=== PATIENT | male | born 1980 | race Caucasian/White ===

== ENCOUNTER 2018-07-10 18:23 | Inpatient (IN) | payer BC, OTHER ==
[~2018-07-10] VITALS: Ht 203.2 cm; Wt 105.2 kg
--- NOTE | 2018-07-10 18:35 | NUR ---
IV LINE ESTABLISHED, BLOOD DRAWNED AND SENT TO LAB.
--- NOTE | 2018-07-10 18:36 | NUR ---
PT BIB SELF C/O CP WITH NUMBNESS ON THE L SHOULDER x 2 DAYS, PT IS AAOX4, NOT IN RESPIRATORY DISTRESS, V/S STABLE, KEPT RESTED AND COMFORTABLE, WILL CONTINUE TO MONITOR.
--- NOTE | 2018-07-10 18:40 | NUR ---
SEEN AND EXAMINED BY DR. GOMEZ.
[2018-07-10] MEDS ORDERED: KETOROLAC TROMETHAMINE INJ 30 MG/ML VIAL IV ONE (19:00)
[2018-07-10] MEDS ORDERED: IV NS 0.9% 1,000 ML BAG IV ONE (19:00)
[2018-07-10 19:08] LABS: BASOPHILS % (AUTO) 0.5 % (0.0-2.0); EOSINOPHILS % (AUTO) 1.7 % (0.0-6.0); HEMATOCRIT 43 % (39-51); HEMOGLOBIN 14.9 g/dL (13.5-17.5); LYMPHOCYTES # (AUTO) 1.2 /CMM (0.8-4.8); LYMPHOCYTES % (AUTO) 21.3 % (20.0-44.0); MEAN CORPUSCULAR HGB CONC 35 g/dl (31.0-36.0); MEAN CORPUSCULAR VOLUME 91 fL (80-96); MONOCYTES # (AUTO) 0.7 /CMM (0.1-1.30); MONOCYTES % (AUTO) 12.2 % (2.0-12.0); NEUTROPHILS # (AUTO) 3.7 /CMM (1.8-8.9); NEUTROPHILS % (AUTO) 64.3 % (43.0-81.0); PLATELET COUNT (AUTO) 199 /CMM (150-450); RED BLOOD CELL COUNT(AUTO) 4.69 MIL/uL (4.5-6.0); WHITE BLOOD COUNT (AUTO) 5.7 K/uL (4.3-11.0)
[2018-07-10] MEDS ORDERED: KETOROLAC TROMETHAMINE INJ 30 MG/ML VIAL ONE (19:12)
--- NOTE | 2018-07-10 19:34 | NUR ---
REPORT GIVEN TO RUPERTO FOR NICHOLE.
[2018-07-10 19:55] LABS: CALCIUM, SERUM 9.1 mg/dL (8.5-10.1); CARBON DIOXIDE 26 mmol/L (21-32); CHLORIDE 101 mmol/L (98-107); CREATININE 1.1 mg/dL (0.6-1.3); GLUCOSE 93 mg/dL (74-106); POTASSIUM 3.9 mmol/L (3.5-5.1); SODIUM SERUM 136 mmol/L (136-145); UREA NITROGEN, BLOOD 16 mg/dL (7-18)
[2018-07-10 20:02] LABS: D-DIMER 2.8 mg/L(FEU (0.17-0.50)
--- NOTE | 2018-07-10 20:02 | NUR ---
PT RESTING IN BED, NAD NOTED. WILL CONTINUE TO MONITOR.
[2018-07-10 20:06] LABS: ALKALINE PHOSPHATASE 93 U/L (46-116); ASPARTATE AMINOTRANSFERASE 21 U/L (15-37); BILIRUBIN,DIRECT 0.1 mg/dL (0.0-0.2); BILIRUBIN,TOTAL 0.9 mg/dL (0.2-1.0)
[2018-07-10 20:07] LABS: ALANINE AMINOTRANSFERASE 33 U/L (12-78); ALBUMIN 4.1 g/dL (3.4-5.0); B-TYPE NATRIURETIC PEPTIDE 40 PG/ML (0-125); TOTAL PROTEIN, SERUM 8.9 g/dL (6.4-8.2)
[2018-07-10] MEDS ORDERED: IOHEXOL-350 100 ML VIAL IV ONE (20:52)
[2018-07-10] MEDS ORDERED: CT SWABBABLE VALVE TRANS SET 1 EA INFUS.SET MC ONE (20:52)
[2018-07-10] MEDS ORDERED: IV NS 0.9% 250 ML IV ONE (20:53)
--- NOTE | 2018-07-10 21:00 | NUR ---
PT TAKEN TO CT.
--- NOTE | 2018-07-10 21:12 | NUR ---
PT RETURNED FROM CT.
--- NOTE | 2018-07-10 21:29 | NUR ---
PT RESTING IN BED COMFORTABLY, NAD NOTED. WILL CONTINUE TO MONITOR.
--- NOTE | 2018-07-10 21:42 | NUR ---
BIJU WAS CALLED. VALET WAS PAGED
[2018-07-10] MEDS ORDERED: ENOXAPARIN SODIUM 60 MG/0.6 ML DISP.SYRIN SQ ONE (22:00)
--- NOTE | 2018-07-10 23:00 | NUR ---
REPORT GIVEN TO BRENT PUENTE FOR NICHOLE.
[2018-07-10 23:05] VITALS: BP 115/71
--- NOTE | 2018-07-10 23:33 | NUR ---
TELE/RN OPENING NOTES PT RECEIVED FROM ER VIA KIERA. A/OX3. ON ROOM AIR, BREATHING EVEN AND UNLABORED. DENIES SOB AT THIS TIME. NOTES SOME CP 2/, DOES NOT NEED MEDICATION AT THIS TIME FOR IT, ITS TOLERABLE. IV TO RAC PATENT AND INTACT. ORIENTED PT TO ROOM AND CALL LIGHT. , TRAM MANCILLA AT BEDSIDE [phone]. BED IN LOW/LOCKED POSITION WITH CALL LIGHT IN REACH, HOB ELEVATED AND BILAT. UPPER SIDE RAILS IN PLACE. PLACED ON TELE MONITOR SHOWING NSR WITH HR 96. WILL CONTINUE TO MONITOR
[2018-07-10 23:37] VITALS: BP 115/71
[2018-07-11] MEDS ORDERED: MAG HYDROX/AL HYDROX/SIMETH 30 ML UDC PO PRN
[2018-07-11] MEDS ORDERED: MAGNESIUM HYDROXIDE 30 ML UDC PO PRN
[2018-07-11] MEDS ORDERED: ACETAMINOPHEN 325 MG TABLET PO PRN
[2018-07-11] MEDS ORDERED: Z GUARD REMEDY 2 OZ OINT TP PRN
[2018-07-11] MEDS ORDERED: ONDANSETRON HCL/PF 4 MG/2 ML VIAL IVP PRN
[2018-07-11] MEDS: HYDROCODONE/APAP 5/325MG 1 EACH TABLET PO PRN ×2 (00:45→21:38)
--- NOTE | 2018-07-11 00:47 | NUR ---
TELE/RN NOTES PT WITH C/O RIGHT FLANK PAIN 5-08/29. REQUESTING PAIN MEDICATION. ADMINISTERED PRN NORCO ORDERED. UPDATED ON PLAN OF CARE. VERBALIZED UNDERSTANDING. WILL CONTINUE TO MONITOR
[2018-07-11 04:00] VITALS: BP 104/60
--- NOTE | 2018-07-11 07:08 | NUR ---
TELE/RN CLOSING NOTES PT ASLEEP, OPENS EYES SPONTANEOUSLY. A/OX4. ON ROOM AIR, BREATHING EVEN AND UNLABORED. IN NO ACUTE DISTRESS AT THIS TIME. DENIES SOB AND PAIN AT THIS TIME. ON TELE MONITOR SHOWING NSR WITH PAC WITH HR 87. IV TO RAC PATENT AND INTACT. GETTING BLOOD DRAWN AT THIS TIME. NO SIGNIFICANT CHANGES OVERNIGHT. ALL NEEDS MET. BED REMAINS IN LOW/LOCKED POSITION WITH CALL LIGHT IN REACH, BILAT UPPER SIDE RAILS IN PLACE. WILL ENDORSE TO DAY SHIFT RN NICHOLE.
--- NOTE | 2018-07-11 07:30 | NUR ---
RN NOTES RECEIVED PATIENT IN BED, ON SITTING POSITION, AWAKE, A/OX4 ABLE TO MAKE NEEDS KNOWN. ON ROOM AIR, NO SOB AT THIS TIME.VERBALIZE COMFORT BUT WITH PAINS ON DEEP BREATHING , DOES NOT NEED MEDICATION FOR IT AT THIS TIME. SINUS RHYTHM ON THE MONITOR WITH HT ONTHE 70'S. IV ACCESS ON THE RAC G 18: IN PLACE, DRESSING CDI. PATENT ON FLUSHING. PATIENT ENCOURAGE TO VERBALIZE FEELINGANG CONCERNS. SAFET MEASURES OBSERVED AND MAINTAINED. BED IN LOW/LOCKED POSITION. CALL LIGHT WITHIN REACH. WILL CONTINUE TO MONITOR
[2018-07-11 07:53] LABS: BASOPHILS % (AUTO) 0.5 % (0.0-2.0); EOSINOPHILS % (AUTO) 3.3 % (0.0-6.0); HEMATOCRIT 38 % (39-51); HEMOGLOBIN 13.3 g/dL (13.5-17.5); LYMPHOCYTES # (AUTO) 1.1 /CMM (0.8-4.8); LYMPHOCYTES % (AUTO) 27.2 % (20.0-44.0); MEAN CORPUSCULAR HGB CONC 35 g/dl (31.0-36.0); MEAN CORPUSCULAR VOLUME 90 fL (80-96); MONOCYTES # (AUTO) 0.5 /CMM (0.1-1.30); MONOCYTES % (AUTO) 13.3 % (2.0-12.0); NEUTROPHILS # (AUTO) 2.2 /CMM (1.8-8.9); NEUTROPHILS % (AUTO) 55.7 % (43.0-81.0); PLATELET COUNT (AUTO) 186 /CMM (150-450); RED BLOOD CELL COUNT(AUTO) 4.25 MIL/uL (4.5-6.0); WHITE BLOOD COUNT (AUTO) 3.9 K/uL (4.3-11.0)
[2018-07-11 08:00] VITALS: BP_SYST 109; BP_DIAS 66; BP_DIAS 68
[2018-07-11 08:06] LABS: CALCIUM, SERUM 8.7 mg/dL (8.5-10.1); MAGNESIUM 2.3 mg/dL (1.8-2.4); PHOSPHORUS 3.9 mg/dL (2.5-4.9); POTASSIUM 3.9 mmol/L (3.5-5.1)
[2018-07-11 08:18] LABS: THYROID STIMULATING HORMONE 3.317 uIU/mL (0.358-3.74)
--- NOTE | 2018-07-11 10:40 | NUR ---
RN NOTES PATIENT ON VENOUS DUPLEX SCAN AND HAVE VERBALIZED CHEST PAIN, JUANCARLOS RN (CHARGE NURSE AT BEDSIDE) ATTACHED PATIENT ON OXYGEN AT 2LPM, PRN MORPHINE 2MG IV ADMINISTERED FOR PAIN. BUDDY JOHNSON, BOUNT[place] HUNTER AT THE UNIT AT THIS TIME, INFORMED ABOUT THE SITUATION AND WENT TO BEDSIDE TO SEE THE PATIENT. INFORMED THAT PATIENT IS GETTING LOVENOX AT 100MG.
[2018-07-11] MEDS: ENOXAPARIN SODIUM 100 MG/ML DISP.SYRIN SQ SCH ×2 (10:44→21:39)
[2018-07-11] MEDS: MORPHINE SULFATE INJ 2 MG/ML DISP.SYRIN IV PRN ×4 (10:45→23:04)
[2018-07-11] MEDS ORDERED: HYDR-4384 PO (14:24)
[2018-07-11] MEDS ORDERED: RIVA10TA PO ×2 (14:24)
--- NOTE | 2018-07-11 15:00 | NUR ---
RN NOTES MEDICATION PRESCRIPTION GIVEN TO FOR REFILLING BY KWAME READ. IN LINE FOR PROPOSED DISCHARGE IN AM
[2018-07-11 16:00] VITALS: BP 117/63
--- NOTE | 2018-07-11 19:16 | NUR ---
RN NOTES ENDORSED PATIENT FOR CONTINUITY OF CARE/ NOT ON ANY FORM OF DISTRESS. NO ACUTE CHANGES WITHIN THE SHIFT. ALL NURSING NEEDS ATTENDED AND MET. SAFETY MEASURES IN PLACE AT ALL TIME. CALL LIGHT WITHIN REACH
--- NOTE | 2018-07-11 19:30 | NUR ---
RN MS NOTES PER DAY NURSE, PATIENT COMPLAINED OF PAIN IN THE CHEST/ABDOMEN AREA. MORPHINE NOT DUE YET. UNRELIEVED BY PAIN MEDICATION. LUIS JOHNSON WAS MADE AWARE OF THE PAIN. PER LUIS JOHNSON, STAT CTA OF CHEST AND ABDOMEN. PATIENT SIGNED CONSENT AND CONTRAST QUESTIONNAIRE. ORDER NOTED AND CARRIED OUT.
--- NOTE | 2018-07-11 19:30 | NUR ---
RN MS OPENING NOTES RECEIVED PATIENT IN BED AWAKE, ALERT AND ORIENTED X4, VERBALLY RESPONSIVE, ABLE TO MAKE NEEDS KNOWN. AT BEDSIDE. BREATHING EVEN AND UNLABORED. NO SOB NOTED. TOLERATING ROOM AIR. WITH COMPLAINTS OF ABDOMINAL/BACK/CHEST PAIN. WILL EMAR FOR PRN PAIN MEDICATION PER MD ORDER. IV ON RAC G#18 INTACT AND PATENT. SKIN DRY AND WARM TO TOUCH. AFEBRILE. ALL OTHER NEEDS MET. SAFETY MEASURES IN PLACE. CALL LIGHT WITHIN REACH. WILL CONTINUE TO MONITOR.
--- NOTE | 2018-07-11 21:55 | NUR ---
RN MS NOTES PATIENT WENT DOWN TO XRAY IN STABLE CONDITION.
[2018-07-11] MEDS ORDERED: IOHEXOL-350 100 ML VIAL IV ONE (21:59)
[2018-07-11 22:49] VITALS: BP 120/68
--- NOTE | 2018-07-11 22:51 | NUR ---
RN MS NOTES PER PATIENT, HE HAD AN EPISODE OF SHIVERING AND SOB AFTER CTA. VITALS IMMEDIATELY TAKE. BP 120/68, HR 71, 99.5F, 02SAT 100% ON RA. PATIENT ALSO STATES THAT HE IS STILL IN A LOT OF PAIN DESPITE NORCO GIVEN. AWS DEVELOPER HERMANN TEIXEIRA HERE IN UNIT, SEEN AND EXAMINED PATIENT WITH THE FOLLOWING ORDERS NOTED AND CARRIED OUT: 1. CHANGE MORPHINE 2MG IV Q4H TO MORPHINE 2MG IV Q2H. ORDER NOTED AND CARRIED OUT. WILL CONTINUE TO MONITOR.
[2018-07-12] MEDS: MORPHINE SULFATE INJ 2 MG/ML DISP.SYRIN IV PRN ×2 (03:48→21:48)
[2018-07-12 06:35] LABS: BASOPHILS % (AUTO) 0.6 % (0.0-2.0); EOSINOPHILS % (AUTO) 2.6 % (0.0-6.0); HEMATOCRIT 38 % (39-51); HEMOGLOBIN 13.3 g/dL (13.5-17.5); LYMPHOCYTES # (AUTO) 1.1 /CMM (0.8-4.8); LYMPHOCYTES % (AUTO) 28.2 % (20.0-44.0); MEAN CORPUSCULAR HGB CONC 35 g/dl (31.0-36.0); MEAN CORPUSCULAR VOLUME 90 fL (80-96); MONOCYTES # (AUTO) 0.5 /CMM (0.1-1.30); MONOCYTES % (AUTO) 13.7 % (2.0-12.0); NEUTROPHILS # (AUTO) 2.2 /CMM (1.8-8.9); NEUTROPHILS % (AUTO) 54.9 % (43.0-81.0); PLATELET COUNT (AUTO) 179 /CMM (150-450); RED BLOOD CELL COUNT(AUTO) 4.24 MIL/uL (4.5-6.0); WHITE BLOOD COUNT (AUTO) 3.9 K/uL (4.3-11.0)
--- NOTE | 2018-07-12 06:51 | NUR ---
RN MS CLOSING NOTES PATIENT RESTING IN BED. NO DISTRESS. BREATHING EVEN AND UNLABORED. NO SOB NOTED. TOLERATING ROOM AIR. CURRENTLY WITH NO COMPLAINTS OF PAIN OR DISCOMFORT. IV ON RAC G#18 INTACT AND PATENT. SKIN DRY AND WARM TO TOUCH. AFEBRILE. ALL OTHER NEEDS MET. SAFETY MEASURES IN PLACE. CALL LIGHT WITHIN REACH. WILL ENDORSE TO ONCOMING NURSE FOR NICHOLE.
[2018-07-12 07:07] LABS: CALCIUM, SERUM 8.8 mg/dL (8.5-10.1); MAGNESIUM 2.1 mg/dL (1.8-2.4); POTASSIUM 4.5 mmol/L (3.5-5.1)
--- NOTE | 2018-07-12 07:10 | NUR ---
MS RN NOTES PATIENT IN BED ALERT ORIENTED X 4. NO ACUTE DISTRESS NOTED. BREATHING UNLABORED. NO SOB NOTED. DENIED ANY PAIN AT TIME. IV ACCESS PATENT AND INTACT, NO REDNESS OR SWELLING NOTED. SAFETY MEASURES IN PLACE, CALL LIGHT WITHIN REACH. WILL CONTINUE TO MONITOR ACCORDINGLY.
[2018-07-12 08:00] VITALS: BP 114/63
[2018-07-12] MEDS: ENOXAPARIN SODIUM 100 MG/ML DISP.SYRIN SQ SCH ×2 (09:38→21:49)
[2018-07-12 16:00] VITALS: BP 139/69
[2018-07-12] MEDS: HYDROCODONE/APAP 5/325MG 1 EACH TABLET PO PRN (18:12)
--- NOTE | 2018-07-12 19:00 | NUR ---
MS RN NOTES PATIENT IN BED ALERT ORIENTED X4. NO ACUTE DISTRESS NOTED. BREATHING UNLABORED. NO SOB NOTED. IV ACCESS PATENT AND INTACT, NO REDNESS OR SWELLING NOTED. DUE MEDICATIONS GIVEN, NO ASE NOTED. NEEDS ATTENDED AND ANTICIPATED. KEPT CLEAN DRY AND COMFORTABLE. SAFETY MEASURES IN PLACE, CALL LIGHT WITHIN REACH. ENDORSED TO NIGHT NURSE FOR CONTINUITY OF CARE.
--- NOTE | 2018-07-12 19:38 | NUR ---
RN OPENING NOTES RECEIVED PATIENT AWAKE, RESTING IN BED. A/O X 4. NO SIGNS OF RESPIRATORY DISTRESS. BREATHING UNLABORED.DENIES SHORTNESS OF BREATH. DENIES PAIN AT THIS TIME. IV SITE PATENT AND INTACT. SAFETY PRECAUTIONS IMPLEMENTED. CALL LIGHT WITHIN REACH. WILL CONTINUE TO MONITOR PATIENT THROUGHOUT THE SHIFT.
[2018-07-12 20:00] VITALS: BP 129/73
[2018-07-12 20:19] VITALS: BP 129/73
--- NOTE | 2018-07-12 22:46 | NUR ---
AIR TRAFFIC SYSTEMS TECHNICIAN NOTES PATIENT WAS DISCHARGED AT 2240. VITAL SIGNS STABLE AT DISCHARGE. NO SIGNS OF RESPIRATORY DISTRESS. PATIENT DENIES SHORTNESS OF BREATH. PATIENT WAS ESCORTED BY DARRELL KERR. PATIENT LEFT WITH . EDUCATION WAS GIVEN TO PATIENT. ALL DISCHARGE PAPERS WERE GIVEN. PRESCRIPTION WAS GIVEN. ALL MEDICATION WAS GIVEN PRIOR TO DISCHARGE.
[2018-07-13 10:12] LABS: *ANTITHROMBIN III AG 102 % (72-124); *DILUTE PROTHROMBIN TIME (dPT) 44.5 sec (0.0-55.0); *PTT-LA 52.8 sec (0.0-51.9); *THROMBIN TIME 14.2 sec (0.0-23.0); *dPT CONFIRM RATIO 1.12 Ratio (0.00-1.40); PROTEIN C ACTIVITY 119 % (73-180)
[2018-07-13 12:10] LABS: *CARD ANTI-CARDIOLIPIN AB IgA <9 APL U/mL (0-11); *CARD ANTI-CARDIOLIPIN AB IgG <9 GPL U/mL (0-14); *CARD ANTI-CARDIOLIPIN AB IgM 9 MPL U/mL (0-12)
[2018-07-14 03:10] LABS: *PTT-LA MIX 51.1 sec (0.0-48.9); *dRVVT MIX 41.9 sec (0.0-47.0)
[2018-07-14 05:09] LABS: *INTERPRETATION Comment: (.)
== END 2018-07-12 10:40 | disposition home or self-care (01) | DRG 176 ==
LOC: ER 18:29 → TELE 22:23 → MED 07-11 09:41
PROVIDERS: ADMIT Nurse Practitioner Acute Care; ATTEND Hospitalist
DX: I26.99 Other pulmonary embolism without acute cor pulmonale (principal); I82.431 Acute embolism and thrombosis of right popliteal vein; J90 Pleural effusion, not elsewhere classified; D61.818 Other pancytopenia; Z80.0 Family history of malignant neoplasm of digestive organs; Z80.1 Family history of malignant neoplasm of trachea, bronchus and lung; F41.9 Anxiety disorder, unspecified; G47.00 Insomnia, unspecified; Z90.49 Acquired absence of other specified parts of digestive tract; Z86.711 Personal history of pulmonary embolism; Z80.42 Family history of malignant neoplasm of prostate; Z98.890 Other specified postprocedural states; M51.27 Other intervertebral disc displacement, lumbosacral region; D72.819 Decreased white blood cell count, unspecified; D64.9 Anemia, unspecified
CPT/HCPCS: 36415; 71045-TC; 74175-TC; 80048-TC; 80061-TC; 80076-TC; 83690-TC; 83735-TC; 83880; 84100-TC; 84443-TC; 84484-TC; 85025-TC; 85300; 85301; 85303; 85378-TC; 85613; 85670; 85705; 85730-TC; 85732; 86147; 87081-TC; 93307-TC; 93970-TC; G0378; J1650; J1885; J2270; J7030; J7050; Q9967

== ENCOUNTER 2020-07-08 13:56 | Emergency (ER) | payer BC, OTHER ==
[~2020-07-08] VITALS: Ht 203.2 cm; Wt 102.1 kg
[~2020-07-08 13:56] MED LIST: HYDR-4384 PO; RIVA10TA PO
--- NOTE | 2020-07-08 14:15 | NUR ---
c/o chest pain x 2 days, no SOB, Hx PE,"i felt a pop on my back" 2 days ago. Patient a/ox4, breathing even and unlabored, no sob noted. Needs attended. Kept comfortable.
[2020-07-08 14:50] LABS: BASOPHILS % (AUTO) 0.8 % (0.0-2.0); EOSINOPHILS % (AUTO) 2.7 % (0.0-6.0); HEMATOCRIT 43 % (39-51); HEMOGLOBIN 14.6 g/dL (13.5-17.5); LYMPHOCYTES # (AUTO) 1.5 /CMM (0.8-4.8); LYMPHOCYTES % (AUTO) 42.6 % (20.0-44.0); MEAN CORPUSCULAR HGB CONC 34 g/dl (31.0-36.0); MEAN CORPUSCULAR VOLUME 93 fL (80-96); MONOCYTES # (AUTO) 0.4 /CMM (0.1-1.30); MONOCYTES % (AUTO) 10.4 % (2.0-12.0); NEUTROPHILS # (AUTO) 1.5 /CMM (1.8-8.9); NEUTROPHILS % (AUTO) 43.5 % (43.0-81.0); PLATELET COUNT (AUTO) 181 /CMM (150-450); RED BLOOD CELL COUNT(AUTO) 4.61 MIL/uL (4.5-6.0); WHITE BLOOD COUNT (AUTO) 3.4 K/uL (4.3-11.0)
[2020-07-08 14:55] LABS: CARBON DIOXIDE 29 mmol/L (21-32); CHLORIDE 105 mmol/L (98-107); CREATININE 1.2 mg/dL (0.6-1.3); GLUCOSE 110 mg/dL (74-106); POTASSIUM 4.3 mmol/L (3.5-5.1); SODIUM SERUM 142 mmol/L (136-145); UREA NITROGEN, BLOOD 15 mg/dL (7-18)
[2020-07-08] MEDS ORDERED: IV NS 0.9% 250 ML IV ONE (14:58)
[2020-07-08] MEDS ORDERED: IOHEXOL-350 100 ML VIAL IV ONE (14:58)
--- NOTE | 2020-07-08 15:51 | NUR ---
PATIENT RESTING, NO DISTRESS NOTED, WILL REPEAT TROPONIN LEVEL AT 5PM
--- NOTE | 2020-07-08 18:39 | NUR ---
Patient a/ox4, breathing even and unlabored, no sob noted, Needs attended. Patient ambulatory with steady gait. IV removed. Catheter intact and site benign. Pressure and 4x4 applied to site. No bleeding noted.Patient discharged to home in stable condition. Written and verbal after care instructions given. Patient verbalizes understanding of instruction.
[2020-07-08 18:40] VITALS: BP 127/77
== END 2020-07-08 18:40 | disposition home or self-care (01) ==
LOC: ER 13:56
DX: R07.89 Other chest pain (principal); D72.819 Decreased white blood cell count, unspecified; F41.9 Anxiety disorder, unspecified; G47.00 Insomnia, unspecified; Z90.89 Acquired absence of other organs; Z98.890 Other specified postprocedural states; Z86.711 Personal history of pulmonary embolism; Z79.899 Other long term (current) drug therapy
CPT/HCPCS: 36415; 71275; 80048; 84484 ×2; 85025; 85730; 93005 ×4; 99285; J7050; Q9967